=== PATIENT | female | born 2000 | race Two or more races ===

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

== ENCOUNTER 2019-03-13 06:33 | Emergency (ER) | payer OTHER ==
[~2019-03-13] VITALS: Ht 162.6 cm; Wt 503.5 kg
[2019-03-13] MEDS ORDERED: ORASEP SPRAY30 ML MM (07:47)
[2019-03-13] MEDS ORDERED: DUI500 PO (07:47)
== END 2019-03-13 08:10 | disposition home or self-care (01) ==
LOC: ER 06:33
DX: J03.80 Acute tonsillitis due to other specified organisms (principal)

== ENCOUNTER 2019-03-16 11:54 | Emergency (ER) | payer OTHER ==
[~2019-03-16] VITALS: Ht 162.6 cm; Wt 49.9 kg
[~2019-03-16 11:54] MED LIST changes: +DUI500 PO; +ORASEP SPRAY30 ML MM
[2019-03-16] MEDS ORDERED: CEFADROXIL500 MG/5 M PO (18:20)
== END 2019-03-16 19:16 | disposition home or self-care (01) ==
LOC: ER 11:54
DX: J03.90 Acute tonsillitis, unspecified (principal)